=== PATIENT | male | born 1970 | race Caucasian/White ===

== ENCOUNTER 2016-11-02 12:06 | Emergency (ER) | payer BC, OTHER ==
[~2016-11-02] VITALS: Ht 177.8 cm; Wt 75.0 kg
[~2016-11-02 12:06] MED LIST: excedrin PO
[2016-11-02 12:07] VITALS: BP 150/86; PULSE 84; RESP 16; TEMP 98.5; O2SAT 98
--- NOTE | 2016-11-02 12:18 | PD ---
Physical Exam Date Seen by Provider: Nov 02, 2016 Time Seen by Provider: 12:16 Narrative 46 yo male that presents to the ED for evaluation of right arm pain after unloading "something" from the truck. Went to walk in clinic and told xrays were negative. This happened yesterday. Was told he might need MRI. PCP told him to come here due to pain and numbness and tingling to the fingers. Pain is 10/10. Pain is to the proximal arm. No other injuries. Vitals sign stable. Patient awaiting bed placement. Data Data Last Documented VS Vital Signs Date Time Temp Pulse Resp B/P Pulse Ox O2 Delivery O2 Flow Rate FiO2 11/02/16 12:07 98.5 84 16 150/86 98 Room Air [facility] Medical Record Reviewed: Yes Supervised Visit with OSWALD: Dorian Garcia Nov 02, 2016 12:18
--- NOTE | 2016-11-02 13:43 | PD ---
HPI Chief Complaint: Injury Time Seen by Provider: 13:45 Travel History International Travel<30 days: No Contact w/Intl Traveler<30days: No Traveled to known affect area: No History of Present Illness HPI Patient is a 46-year-old male who presents to emergency department for evaluation of right arm pain and difficulty flexing his right elbow. Patient states he was lifting something have re-yesterday and felt something pop. He went to an urgent care center where he had an x-ray done. The x-ray was reported as negative. Patient states he continued to have pain and called that facility again and the nurse recommended that the emergency Department for consideration of an MRI. Patient has not yet discussed with an orthopedic surgeon or his primary care physician. Patient is concerned because he is going on a trip next week to [place] to go backpacking with his son. Patient's symptoms are been gradually improving. PFSH Past Medical History Medical History: Denies Significant Hx Cancer: No Diabetes: No Glaucoma: No Hepatitis: No Hiatal Hernia: No Hypertension: No Thyroid Disease: No Tetanus Vaccination: Unknown Past Surgical History Oral Surgery: Yes (oral surgery teeth) Pacemaker: No Social History Alcohol Use: No Tobacco Use: No Substance Use: No Allergies-Medications (Allergen,Severity, Reaction): Coded Allergies: Penicillin (Verified Allergy, Severe, sob" asthma like symptoms", 11/02/16) Reported Meds & Prescriptions Reported Meds & Active Scripts Active Reported [excedrin] PO PRN Review of Systems Except as stated in HPI: all other systems reviewed are Neg Physical Exam Narrative GENERAL: Well-nourished, well-developed patient. No apparent distress SKIN: Focused skin assessment warm/dry. HEAD: Normocephalic. EYES: No scleral icterus. No injection or drainage. NECK: Supple, trachea midline. No JVD or lymphadenopathy. CARDIOVASCULAR: Regular rate and rhythm without murmurs, gallops, or rubs. RESPIRATORY: Breath sounds equal bilaterally. No accessory muscle use. GASTROINTESTINAL: Abdomen soft, non-tender, nondistended. MUSCULOSKELETAL: No cyanosis, or edema. Right upper extremity: Patient has adequate light sensation over the entire of his right upper extremity. Distally in his hand all motions are intact including thumb opposition abduction and abduction flexion and extension, all finger flexor and extensors are intact. Patient is able to fully range his wrist. He has no tenderness at the shoulder wrist or hand. Patient has some minimal tenderness at the soft tissues of the right elbow. Over the humerus there is no contraction of the biceps muscle to indicate a complete biceps tendon rupture. When the patient attempts to flex at the elbow he is able to slightly bring the wrist and hand off the stretcher and flex to approximately 135 from completely straight. He is able to hold up his wrists against gravity when asked to do so. He does have some tenderness in pronation and supination of the right wrist. There is no gross deformity. Compartments are soft. Left upper extremity: Atraumatic. BACK: Nontender without obvious deformity. No CVA tenderness. Data Data Last Documented VS Vital Signs Date Time Temp Pulse Resp B/P Pulse Ox O2 Delivery O2 Flow Rate FiO2 11/02/16 13:26 Room Air 11/02/16 12:07 98.5 84 16 150/86 98 MDM Medical Decision Making Medical Screen Exam Complete: Yes Emergency Medical Condition: Yes Differential Diagnosis Tendon tear, muscle strain, fracture unlikely. Narrative Course Patient 46-year-old male presents emergency department for evaluation of difficulty flexing his right elbow after hearing a pop yesterday. Clinically he is able to range his elbow slightly and I doubt this is a complete biceps tendon tear. There is no indication for an emergent workup at this time. He needs to allow swelling to go down and recommended ice and ibuprofen as well as follow-up with an orthopedic surgeon his primary care physician. This was discussed with the patient. He is stable for discharge and outpatient workup at this time. He will continue to use his sling which was provided to him at the outside facility. Diagnosis Primary Impression: Biceps tendon tear Qualified Code: S46.111A - Biceps tendon tear, right, initial encounter Referrals: Gabino Adams Jr., MD, [place] Additional Instructions: Follow-up with Dr. Terry by phone today. Recommend calling Dr. Whitfield. Recommend pursuing outpatient MRI in the next 1-2 weeks. Disposition: 01 DISCHARGE HOME Condition: Stable Yohan Vazquez MD Nov 02, 2016 13:43
== END 2016-11-02 14:10 | disposition home or self-care (01) ==
LOC: NEPD 12:06
DX: S46.111A Strain of muscle, fascia and tendon of long head of biceps, right arm, initial encounter (principal); S46.211A Strain of muscle, fascia and tendon of other parts of biceps, right arm, initial encounter; X50.3XXA Overexertion from repetitive movements, initial encounter; Y93.89 Activity, other specified; Y92.89 Other specified places as the place of occurrence of the external cause; Y99.8 Other external cause status
CPT/HCPCS: 99283